=== PATIENT | female | born 1945 | race Caucasian/White ===

== ENCOUNTER → 2017-06-20 | Outpatient (CLI) | payer OTHER ==
[~2017-06-20] MED LIST: ACET-1138 PO; ASPEC81 PO; CALCTAB5 PO; CHOL1000 PO; CLB200 PO; CLC100 PO; GLUCTAB18 PO; LEVO25TA5 PO; MULT-190 PO; MULT-506 PO; OMEG10007 PO; POLY99.02 OP; PRT40 PO; RXC5 PO; SNK PO
[2017-06-20 14:03] LABS: THYROID STIMULATING HORMONE 3.4 uIu/ml (0.300-4.500)
== END | disposition home or self-care (01) ==
LOC: C.LABMFLN 09:10
PROVIDERS: ATTEND Family Medicine
DX: E03.9 Hypothyroidism, unspecified (principal)

== ENCOUNTER → 2017-10-27 | Outpatient (CLI) | payer OTHER ==
[2017-10-27 13:18] LABS: HEMOGLOBIN A1C 6.1 % (4.5-5.6)
[2017-10-27 14:06] LABS: BLOOD UREA NITROGEN 17 mg/dl (7-18); CARBON DIOXIDE 33 mmol/L (21-32); CREATININE 0.73 mg/dl (0.60-1.20); GLUCOSE 101 mg/dl (70-99); POTASSIUM 3.7 mmol/L (3.5-5.1); SODIUM 137 mmol/L (136-145)
== END | disposition home or self-care (01) ==
LOC: C.LABMFLN 09:04
PROVIDERS: ATTEND Family Medicine
DX: R73.01 Impaired fasting glucose (principal)

== ENCOUNTER 2022-01-27 08:03 | Inpatient (IN) ==
--- NOTE | 2021-12-31 09:02 | PAT Medication Instructions ---
Medication Instructions Date of Service December 31, 2021 Home Medications Medication Instructions Recorded calcium carb 300 mg-D3 800 1 tab PO BID #180 tab 03/20/19 unit-mag ox 25 mg-service technician copier 0.5 mg-yareli-Zn tablet (Caltrate + D3 Plus Minerals) vcfpqzqf-bbv-jvlrm acid 0.4 1 tab PO DAILY #90 tab 03/20/19 mg-lycopene 300 mcg-lutein 250 mcg tablet (Centrum Silver) vitamins A,C,Q-yvgr-xkvbyv 14,320 1 cap PO BID #180 cap 03/20/19 unit-226 mg-200 unit capsule (PreserVision AREDS) calcium carb 300 mg-D3 800 unit-mag ox 25 mg-service technician copier 0.5 mg-yareli-Zn tablet (Caltrate + D3 Plus Minerals) 1 tab PO BID Centrum Silver 1 tab PO DAILY PreserVision AREDS 1 cap PO BID acetaminophen 650 mg tablet,extended release (Tylenol Arthritis Pain) 1,300 mg PO UD PRN alendronate 70 mg tablet 70 mg PO WK cholecalciferol (vitamin D3) 50 mcg (2,000 unit) capsule 2,000 units PO QAM levothyroxine 50 mcg capsule 50 mcg PO QAM omega-3 fatty acids 1,000 mg capsule 1,000 mg PO QAM peg 400-propylene glycol (PF) 0.4 %-0.3 % eye drops in a dropperette (Systane (PF)) 1 drp OPHTHALMIC (EYE) UD PRN Continue as directed alendronate 70 mg tablet 70 mg PO WK STOP taking 2 weeks before surgery (or as soon as possible if surgery is within 2 weeks) PreserVision AREDS 1 cap PO BID omega-3 fatty acids 1,000 mg capsule 1,000 mg PO QAM DO NOT take the morning of surgery calcium carb 300 mg-D3 800 unit-mag ox 25 mg-service technician copier 0.5 mg-yareli-Zn tablet (Caltrate + D3 Plus Minerals) 1 tab PO BID Centrum Silver 1 tab PO DAILY cholecalciferol (vitamin D3) 50 mcg (2,000 unit) capsule 2,000 units PO QAM Take morning of surgery With a small sip of water, OTHERWISE NOTHING TO EAT OR DRINK AFTER MIDNIGHT: acetaminophen 650 mg tablet,extended release (Tylenol Arthritis Pain) 1,300 mg PO UD PRN (okay to take up to 4 hours prior to surgery if needed) levothyroxine 50 mcg capsule 50 mcg PO QAM peg 400-propylene glycol (PF) 0.4 %-0.3 % eye drops in a dropperette (Systane (PF)) 1 drp OPHTHALMIC (EYE) UD PRN (if needed) Take evening before surgery calcium carb 300 mg-D3 800 unit-mag ox 25 mg-service technician copier 0.5 mg-yareli-Zn tablet (Caltrate + D3 Plus Minerals) 1 tab PO BID acetaminophen 650 mg tablet,extended release (Tylenol Arthritis Pain) 1,300 mg PO UD PRN (if needed) peg 400-propylene glycol (PF) 0.4 %-0.3 % eye drops in a dropperette (Systane (PF)) 1 drp OPHTHALMIC (EYE) UD PRN (if needed) Other Notes If you have any questions please call us at [phone] or [phone] or [phone] or [phone]
--- NOTE | 2022-01-04 13:32 | Anesthesiology Consultation ---
Date of Service January 04, 2022 Assessment & Plan (1) Encounter for pre-operative examination: - COVID screening: Per assessment on 01/04: No known COVID-19 positive contacts or current COVID-19 related symptoms. Travel screen negative. Patient vaccluz marina merritt. Surgeon arranging preop COVID testing. Awaiting results. - Patient acceptable risk for surgery pending surgeon-ordered PCP preop evaluation (scheduled 01/12; [facility]). Chart Review Chart Review: Patient seen in Pre Admission Testing Teaching & Discussion Pre-Anesthesia Teaching/Discussion Notes: Instructed NPO after midnight before surgery,except medications with 15 cc of water. Medication instructions provided according to the PAT guidelines. History Surgery Operation Date: 01/27/22 13:35 Proposed Procedures p Right Total Knee Arthroplasty - Glen Toro MD Height/Weight Height: 5 ft 4.5 in Weight: 65.3 kg Allergies Allergy/AdvReac Type Severity Reaction Status Date / Time No Known Allergies Allergy Verified 12/30/21 15:33 Medications Home Medications Medication Instructions Recorded Confirmed Last Taken calcium carb 300 mg-D3 800 1 tab PO BID #180 tab 03/20/19 12/30/21 Unknown unit-mag ox 25 mg-copy director 0.5 mg-yareli-Zn tablet (Caltrate + D3 Plus Minerals) fwkqzati-iwy-vtxtc acid 0.4 1 tab PO DAILY #90 tab 03/20/19 12/30/21 Unknown mg-lycopene 300 mcg-lutein 250 mcg tablet (Centrum Silver) vitamins A,C,F-txth-uamnlu 14,320 1 cap PO BID #180 cap 03/20/19 12/30/21 Unknown unit-226 mg-200 unit capsule (PreserVision AREDS) acetaminophen 650 mg 1,300 mg PO UD PRN tab 03/30/21 12/30/21 Unknown tablet,extended release (Tylenol Arthritis Pain) alendronate 70 mg tablet 70 mg PO WK 12/30/21 12/30/21 Unknown cholecalciferol (vitamin D3) 50 2,000 units PO QAM 12/30/21 12/30/21 Unknown mcg (2,000 unit) capsule levothyroxine 50 mcg capsule 50 mcg PO QAM 12/30/21 12/30/21 Unknown omega-3 fatty acids 1,000 mg 1,000 mg PO QAM 12/30/21 12/30/21 Unknown capsule peg 400-propylene glycol (PF) 0.4 1 drp OPHTHALMIC (EYE) UD PRN 12/30/21 12/30/21 Unknown %-0.3 % eye drops in a dropperette (Systane (PF)) Past Medical History Medical History Hypothyroidism Macular degeneration Osteoporosis TMJ (temporomandibular joint disorder) No recent issues Exercise / Class Metabolic Activity III < 4 Walking/Shop/Light housework (uses cane PRN) Past Family History Family History Father Diabetes Coronary heart disease Mother Heart disease Denies family history of Ovarian cancer Prostate cancer Myocardial infarction Breast cancer Colorectal cancer Past Surgical History Surgical History H/O breast biopsy History of colonoscopy History of right hip replacement Past Anesthesia History No Hx of Anesthesia Complications and No Family Hx of Anesthesia Complications History of PONV No Hx of PONV and No Hx of Motion Sickness Social History Smoking Status: Never smoker Do You Dip or Chew Tobacco: No Hx Alcohol Use: No Hx Substance Use: No substance use type: does not use Review of Systems Patient denies chest pain, shortness of breath, dyspnea on exertion, fever, chills, cough, wheezing, palpitations. Physical Exam Vital Signs VITALS BP 124/75 P 69 TEMP 99.5 SP02 99%RA RESP 18 PHYSICAL Mildly decreased cervical extension range of motion. Full TMJ range of motion. TMD 3 finger breaths Mallampati Score 3 Dentition: intact, + crowns Lungs: clear throughout to auscultation Cardiac: regular rate and rhythm (occasional extra beat), no murmurs noted Spine: + scoliosis Carotid arteries: negative bruit Extremities: no edema Lab Results Anesthesia Preop Results Results Anesthesia Widget: WBC 4.24 K/uL (4.8-10.8) L 01/04/22 Hgb 12.0 g/dL (12.0-16.0) 01/04/22 Hct 37.1 % (37-47) 01/04/22 Plt 229 K/uL (130-400) 01/04/22 Na 139 mmol/L (136-145) 12/30/21 K 3.9 mmol/L (3.5-5.1) 12/30/21 Cl 100 mmol/L (98-107) 12/30/21 CO2 33 mmol/L (21-32) H 12/30/21 BUN 18 mg/dl (6-23) 12/30/21 Creat 0.71 mg/dl (0.6-1.2) 12/30/21 Glucose Level 105 mg/dl (70-99(Fasting)) H 12/30/21 PT 10.9 Seconds (9.0-12.0) 01/04/22 PTT 24.9 Seconds (21.0-31.0) 01/04/22 INR 1.0 (0.9-1.1) 01/04/22 TSH 3.267 uIu/ml (0.300-4.500) 12/30/21 Urine Color Yellow 01/04/22 Urine Appearance Clear (Clear) 01/04/22 Urine pH 8.5 (4.5-7.5) H 01/04/22 Urine Specific Purlear 1.014 (1.000-1.030) 01/04/22 Urine Protein Negative (Negative) 01/04/22 Urine Glucose (UA) Negative (Negative) 01/04/22 Urine Ketones Negative (Negative) 01/04/22 Urine Blood Negative (Negative) 01/04/22 Urine Nitrite Negative (Negative) 01/04/22 Urine Bilirubin Negative (Negative) 01/04/22 Urine Urobilinogen Negative (Negative) 01/04/22 Urine Leukocyte Esterase Negative (Negative) 01/04/22 Blood Type A Negative 01/04/22 Antibody Screen NEGATIVE 01/04/22 Testing Electrocardiogram Date: 01/04/22 SB at 57bpm. No significant change compared to 04/20/16 per head start teacher review. Chest X-Ray Date: 01/04/22 FINDINGS: Incidental note is made of S-shaped scoliosis of the thoracolumbar spine. No pneumothorax or pleural effusion is present. There is no consolidation or evidence for pulmonary edema. Cardiac size is within normal limits. IMPRESSION: No acute cardiopulmonary findings.
--- NOTE | 2022-01-24 08:53 | History & Physical Report ---
Date of Service January 24, 2022 Assessment & Plan (1) Primary osteoarthritis of right knee: Plan: Treatment options discussed with the patient. She has failed conservative measures and would like to proceed with knee replacement. Risks, benefits and alternatives to surgery including but not limited to infection, DVT, pain, stiffness, need for revision surgery, damage to blood vessels, damage to nerves, PE, , were discussed with the patient and they wish to proceed. Plan on right total knee arthroplasty on January 27 at [facility] with Dr. Toro. We will plan on aspirin 81 mg twice a day for 1 month postop for DVT prophylaxis. We will plan on inpatient rehab/residential facility postop. All questions answered. Patient will follow up postoperatively. History of Present Illness Chief Complaint: Right knee pain Primary Care Provider: Rick Arce MD 76-year-old female with past medical history significant for hypothyroidism and osteoporosis presents with longstanding right knee pain. Pain is interfering with her daily activities. She has failed conservative measures including injections and anti-inflammatories. She would like to proceed with surgical intervention. Patient denies headaches, sweats, fevers, chills, double vision, blurred vision, cough, sore throat, dysphagia, chest pain, sob, wheezing, n/v/d/c, numbness, tingling, fatigue, urinary symptoms, mood disorders. ROS positive for right knee pain and stiffness. Allergies Allergy/AdvReac Type Severity Reaction Status Date / Time No Known Allergies Allergy Verified 01/12/22 12:40 Home Medications Medication Instructions Recorded Confirmed Type calcium carb 300 mg-D3 800 1 tab PO BID #180 tab 03/20/19 01/12/22 Rx unit-mag ox 25 mg-coppersmith apprentice 0.5 mg-yareli-Zn tablet (Caltrate + D3 Plus Minerals) njzrjpdg-axx-wiczq acid 0.4 1 tab PO DAILY #90 tab 03/20/19 01/12/22 Rx mg-lycopene 300 mcg-lutein 250 mcg tablet (Centrum Silver) vitamins A,C,E-mkgx-zxtylz 14,320 1 cap PO BID #180 cap 03/20/19 01/12/22 Rx unit-226 mg-200 unit capsule (PreserVision AREDS) acetaminophen 650 mg 1,300 mg PO UD PRN tab 03/30/21 01/12/22 History tablet,extended release (Tylenol Arthritis Pain) alendronate 70 mg tablet 70 mg PO WK 12/30/21 01/12/22 History cholecalciferol (vitamin D3) 50 2,000 units PO QAM 12/30/21 01/12/22 History mcg (2,000 unit) capsule levothyroxine 50 mcg capsule 50 mcg PO QAM 12/30/21 01/12/22 History omega-3 fatty acids 1,000 mg 1,000 mg PO QAM 12/30/21 01/12/22 History capsule peg 400-propylene glycol (PF) 0.4 1 drp OPHTHALMIC (EYE) UD PRN 12/30/21 01/12/22 History %-0.3 % eye drops in a dropperette (Systane (PF)) Past Med/Surg History Medical History Hypothyroidism Macular degeneration Osteoporosis TMJ (temporomandibular joint disorder) Surgical History H/O breast biopsy History of colonoscopy History of right hip replacement Family History Father Diabetes Coronary heart disease Mother Heart disease Denies family history of Ovarian cancer Prostate cancer Myocardial infarction Breast cancer Colorectal cancer Social History Smoking Status: Never smoker Second Hand Exposure: No; Hx Alcohol Use: No Hx Substance Use: No Preferred Language: French Communication Ability: Effective Visual Impairment: Partially Limited Hearing Ability: Normal Vice President Of Brand Management Required: No Beliefs That Will Affect Care: None marital status: / Current Living Situation: Alone current occupational status: retired 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 How many Children do You have: 0 Feels Safe at Home: Yes Childhood Exposure to Second-Hand Smoke: No Seatbelt Use: always Sunscreen Use: Yes Assistive Devices: Cane and Walker Review of Systems All systems reviewed & are unremarkable except as noted in HPI & below Physical Exam Constitutional: well developed and well nourished; no acute distress Eyes: PERRL, conjunctivae normal, anicteric sclerae ENMT: external ear and nose normal, oropharynx normal Neck: trachea midline, no thyromegaly Respiratory: normal respiratory effort, lungs clear to auscultation Cardiovascular: RRR, no murmur, no edema Musculoskeletal: Right knee: Varus alignment. Moderate effusion. She has crepitation with range of motion. Tenderness medial joint line. Stable to valgus and varus stress test. Range of motion is 10 to 115 degrees actively. Skin: no rashes, warm and dry Neurologic: patellar DTR's 2+ bilat, sensation intact Psychiatric: A+Ox3, euthymic affect Results & Data ([facility]) Diagnostic Findings Right knee: [id number] medial compartment. There is tricompartmental osteoarthritis with osteophyte formation all 3 compartments. There is subchondral sclerosis.
[~2022-01-27 08:03] MED LIST changes: -ACET-1138 PO; +ACETAMINOPHEN 500 MG TAB PO SCH; -ASPEC81 PO; -CALCTAB5 PO; -CHOL1000 PO; -CLB200 PO; -CLC100 PO; +CeleBREX 200 MG CAP PO SCH; +FAMOTIDINE 20 MG TAB PO SCH; +GABAPENTIN 300 MG CAP PO SCH; -GLUCTAB18 PO; -LEVO25TA5 PO; +LR 500ML BOLUS, THEN 15ML/HR IV SCH; +METOCLOPRAMIDE HCL 10 MG TABLET PO SCH; +MIDAZOLAM HCL 1 MG/ML 2ML VIAL ONE; -MULT-190 PO; -MULT-506 PO; -OMEG10007 PO; -POLY99.02 OP; -PRT40 PO; +ROPIVACAINE 0.5% 5 MG/ML 30 ML VIAL ONE; +ROPIVACAINE 0.5% HCL/PF 150 MG, BUPIVACAINE 0.75% MPF 20 ML, EPINEPHrine 30MG/30ML (OR ... INSTIL SCH; -RXC5 PO; -SNK PO; +TRANEXAMIC ACID 1,000 MG **IV Intra-op IV SCH; +TRANEXAMIC ACID 1,000 MG **IV Pre-op IV SCH; +ceFAZolin 1000MG 1,000 MG/7.5 ML SYR IV SCH; +dexAMETHasone 4 MG TAB PO SCH
[2022-01-27] MEDS ORDERED: BUPIVACAINE 0.5 % 5 MG/1 ML PF 10ML VIAL ONE (08:11)
--- NOTE | 2022-01-27 09:13 | History & Physical Bridge Note ---
Date of Service January 27, 2022 History & Physical Bridge Note I have examined the patient, reviewed the History & Physical and in the interval since the performance of the History & Physical I have noted the following changes of clinical significance: no changes noted
[2022-01-27] MEDS ORDERED: ONDANSETRON INJ 2 MG/ML 2 ML VIAL IV PRN ×2 (09:49→14:10)
[2022-01-27] MEDS ORDERED: ePHEDrine sulfate 50 MG/ML AMP IV PRN (09:49)
[2022-01-27] MEDS ORDERED: HYDROmorphone INJ 2 MG/ML SYR/VIAL IV PRN (09:49)
[2022-01-27] MEDS ORDERED: fentaNYL citrate 100 MCG/2 ML VIAL IV PRN (09:49)
[2022-01-27] MEDS ORDERED: ATROPINE SULFATE 0.1 MG/ML 10ML SYR IV PRN (09:49)
[2022-01-27] MEDS ORDERED: PROMETHAZINE HCL 12.5 MG in SODIUM CHLORIDE 0.9% 50 ML IV PRN (09:49)
[2022-01-27] MEDS ORDERED: ORTHO JOINT ANESTHETIC ONE (09:52)
[2022-01-27] MEDS ORDERED: PROPOFOL IV EMULSION 10 MG/ML 20 ML VIAL IV ONE (10:33)
[2022-01-27] MEDS ORDERED: ePHEDrine sulfate 50 MG/ML AMP ONE (10:41)
--- NOTE | 2022-01-27 12:13 | Operative Report ---
Post Operative Report Pre & Post Diagnosis Operation Date: 01/27/22 10:20 Pre-Op Diagnosis: Right Knee Osteoarthritis Post-Op Diagnosis: Right Knee Osteoarthritis I identified the patient and participated in the time-out.: Yes Procedure Operation Date: 01/27/22 10:20 Actual Procedures p Right Total Knee Arthroplasty(Right) - Glen Toro MD Surgeon Glen Toro MD Clean In Places Operator Edvin LOPES Estimated Blood Loss 5 Findings Consistent with Post-Op Diagnosis Specimens Bone cuts Drains 2 Hemovac Anesthesia Type MAC Spinal Regional Complications none Disposition Disposition: Recovery Room Indications 76-year-old female progressive osteoarthritis in her right knee. She has tricompartmental osteoarthritis lsof-xy-[id number] medial compartment. Varus knee. Description of Procedure Patient was taken to the operating room placed supine on the operating table and anesthetized under spinal MAC regional block anesthesia. Exam under anesthesia demonstrated 0 through 120 degrees range of motion [id number] crepitation mild pseudolaxity with valgus stress. A pneumatic tourniquet was placed about the thigh of the right lower extremity. The right lower extremity was prepped and draped in usual sterile fashion. The leg was elevated exsanguinated with an Esmarch bandage and the pneumatic tourniquet was raised to 325 mm mercury. An anterior incision was made across the right knee. The skin was incised longitudinally subcutaneous flaps were elevated and an incision was made through the medial retinaculum extending up into the mid third of the quadriceps tendon and extended down to the medial tibial tubercle. Intra-articular findings demonstrated tricompartmental osteoarthritis eburnated bone medial and lateral compartments with notch stenosis chronic ACL tear. The knee was exposed by excising the infrapatellar fat pad, excising the meniscal remnants and anterior cruciate ligament. Any inflamed synovial tissue was resected. The fat pad over the anterior femur was resected for placement of the component in that area. The lateral synovial bands were release. The femur was exposed. The custom femoral cutting block was pinned in position. The distal femoral cutting block was applied. The distal femoral cut was made with the oscillating saw. The size 8, 4-in-1 cutting block was placed. The anterior and posterior chamfer cuts were made. The knee was extended and a subperiosteal peel lateral release was performed around the patella. The patella width was measured and width was reproduced using freehand cut technique. The 32 x 8.5 millimeter symmetrical patella was used. 3 drill holes are made for the pegs. The tibia was exposed. A custom tibial cutting block was positioned and drill holes were made for the cutting guide. Cutting guide was placed and the proximal cut was made with the oscillating saw. All osteophytes were resected. The lamina professional model was used to assess ligamentous balance and the ligaments were balanced in extension and flexion. The tibia was reexposed and measured for a size E tibial component. This was externally rotated in line with the tibial tubercle and the fixation pins were drilled. The proximal tibia was fashioned with the drill and punch. The size 8 CR femoral trial was inserted. The trial MC inserts were used. The 12 mm insert gave balanced ligaments through full range of motion. The patella tracked slight lateral tilt and liftoff so I performed a partial lateral release leaving the synovium intact and this corrected the patella to complete central tracking with no tilt. The trials were removed. The orthomix anesthetic cocktail was injected per protocol. The knee was then copiously irrigated with pulsatile lavage saline solution. The final components were cemented with Refobacin bone cement. The final components were Nasir persona 8 standard CR right femoral component, E right tibial component, 12 MC tibial polyethylene, 32 x 8.5 symmetrical patella. after the cement cured with the knee in full extension the Betadine soak was used per protocol. The knee joint was copiously irrigated with pulsatile lavage saline solution . 2 drains were brought out laterally and connected to a Hemovac. The quadriceps tendon and medial retinaculum were closed with interrupted [id number] #1 Vicryl sutures. The knee was taken through a full range of motion and repair was secure. The subcutaneous tissues were closed with 2-0 Vicryl sutures and skin was closed with khalida. Sterile dressings were applied and the patient tolerated the procedure well.Edvin LOPES my physician desk assistant,acted sa first assisstant and assisted in all aspects of the procedure. he assisted in soft tissue retraction, instrument management ,leg positioning, the closure and will participate in the postoperative care of the patient. I attest to the content of the Intraoperative Record and any orders documented therein. Any exceptions are noted below.
--- NOTE | 2022-01-27 13:48 | XRay Report ---
XR knee RT 1 or 2V routine HISTORY: 76 years-old Female Surgical Post Op right knee total joint arthroplasty COMPARISON: None TECHNIQUE: 2 views of the right knee FINDINGS: Right knee total joint arthroplasty with patellar resurfacing. Anterior midline skin khalida are note d along with expected postoperative soft tissue swelling and deep tissue air. Surgical drainage peggy ter is in place. No acute fracture or unexpected opaque foreign body. IMPRESSION: Right knee total joint arthroplasty and patella resurfacing with expected postoperative c hanges. ACT 112: Negative or not required by law. The above report was generated using voice recognition software. It may contain grammatical, syntax o r spelling errors. Electronically signed by: Jordan Reynolds M.D. 01/27/2022 1:47 PM
--- NOTE | 2022-01-27 13:50 | Anesthesiology Progress Note ---
Date of Service January 27, 2022 Anesthesia Post Procedure Vital Signs Vital Signs: Temp Pulse Pulse Resp BP BP Pulse Ox 01/27/22 13:45 54 L 14 103/78 97 01/27/22 13:30 36.4 C L 56 L 14 109/70 97 01/27/22 13:20 56 L 15 116/60 100 01/27/22 13:10 55 L 15 109/63 100 01/27/22 13:00 61 13 113/73 100 01/27/22 12:54 36.1 C L 66 18 113/62 100 01/27/22 08:51 36.8 C 62 18 156/74 H 100 Transfer of Care Handoff Completed per policy Notes Mental Status: alert / awake / arousable and participated in evaluation Patient Amnestic to Procedure: Yes Nausea / Vomiting: adequately controlled Pain: adequately controlled Airway Patency, RR, SpO2: stable & adequate BP & HR: stable & adequate Hydration State: stable & adequate Anesthetic Complications: no major complications apparent
[2022-01-27] MEDS ORDERED: METOCLOPRAMIDE HCL INJ 5 MG/ML 2 ML VIAL IV PRN (14:10)
[2022-01-27] MEDS ORDERED: MAGNESIUM HYDROXIDE SUSP 30 ML UDC PO PRN (14:10)
[2022-01-27] MEDS ORDERED: NALOXONE HCL 0.4 MG/1 ML VIAL/CARP IV PRN (14:10)
[2022-01-27] MEDS ORDERED: bisacodyL 10 MG SUPP PR PRN (14:10)
[2022-01-27] MEDS ORDERED: HYDROmorphone INJ 0.5 MG/0.5 ML SYR IV PRN (14:10)
[2022-01-27] MEDS ORDERED: ARTIFICIAL TEARS OP PRN (14:25)
[2022-01-27] MEDS: SODIUM CHLORIDE 0.9% 1000ML 1,000 ML IV SCH (15:25)
--- NOTE | 2022-01-27 15:42 | Hospitalist Consultation ---
Date of Consultation January 27, 2022 Assessment & Plan (1) Primary osteoarthritis of right knee: Lila is a 76-year-old female with a past medical history of knee osteoarthritis,Prediabetes, hypothyroidism, and osteoporosis who presented for right knee arthroplasty. Patient is status post right total knee arthroplasty, medicine has been consulted for postoperative management. Operative intervention 01/27/2022 was uncomplicated by report with 5 cc of estimated blood loss. Normotensive with regular heart rate postop, no fever. Encouraged to use incentive spirometry. Right knee arthroplasty DVT prophylaxis, pain control, diet, ambulation restrictions per primary team Patient status post total knee arthroplasty 01/23/2022 with minimal blood loss and no complications Preop hemoglobin normal, no signs of bleeding Hypothyroidism Continue home Synthroid 50 mcg p.o. every morning Last TSH 3.267, within normal limits Prediabetes Last A1c 6.2%, does not require home antilipemics BMP daily Preoperative testing Preoperative EKG sinus bradycardia without acute ST changes and no change compared to prior 2015. CXR without acute findings. RCRI class I risk. Preoperative hemoglobin normal, 12.0. No history of kidney dysfunction, last creatinine less than 1. 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 Patient is status post right total knee arthroplasty, medicine has been consulted for postoperative management. Operative intervention 01/27/2022 was uncomplicated by report with 5 cc of estimated blood loss. Feels her knee is doing well. "Doing OK." no pain at tiem of assessment. 'Still numb.' Pre-DM, no PHYSICAL EDUCATION DEPARTMENT CHAIR antiglycemics. Takes synthroid 50mcg, last changed just prior to August. Recent TSh normal. No chills/night sweats/increased fatigue/weight change. No hx heart attacks of heart problems No hx of blood pressure problems Has noticed some urinary incontinence post-op, thinks she had a Rangel in but is not sure. no pain with urination, no burning. No fever/chills/sweats/nausea/vomiting/diarrhea/constipation. Denies shortness of breath, difficulty breathing, wheezing, cough, sputum production. COVID vaccinated + boosted Medical History: Reviewed Medications: Reviewed Surgical History: Reviewed Allergies: Reviewed Social History: No tobacco product use. No alcohol use. No recreational drug use. Lives in the [facility] [place] and likes to walk. Code Status: Surrogate DM would be Makayla Osullivan. Full Code. Allergies Allergy/AdvReac Type Severity Reaction Status Date / Time No Known Allergies Allergy Verified 01/27/22 08:47 Home Medications Medication Instructions Recorded Confirmed Type calcium carb 300 mg-D3 800 1 tab PO BID #180 tab 03/20/19 01/27/22 Rx unit-mag ox 25 mg-newspaper copy editor 0.5 mg-yareli-Zn tablet (Caltrate + D3 Plus Minerals) ccvgyrck-kdy-rdaiu acid 0.4 1 tab PO DAILY #90 tab 03/20/19 01/27/22 Rx mg-lycopene 300 mcg-lutein 250 mcg tablet (Centrum Silver) vitamins A,C,D-cnmc-jvezno 14,320 1 cap PO BID #180 cap 03/20/19 01/27/22 Rx unit-226 mg-200 unit capsule (PreserVision AREDS) acetaminophen 650 mg 1,300 mg PO UD PRN tab 03/30/21 01/27/22 History tablet,extended release (Tylenol Arthritis Pain) alendronate 70 mg tablet (Fosamax) 70 mg PO WK 12/30/21 01/27/22 History cholecalciferol (vitamin D3) 50 2,000 units PO QAM 12/30/21 01/27/22 History mcg (2,000 unit) capsule levothyroxine 50 mcg capsule 50 mcg PO QAM 12/30/21 01/27/22 History omega-3 fatty acids 1,000 mg 1,000 mg PO QAM 12/30/21 01/27/22 History capsule peg 400-propylene glycol (PF) 0.4 1 drp OPHTHALMIC (EYE) UD PRN 12/30/21 01/27/22 History %-0.3 % eye drops in a dropperette (Systane (PF)) Patient History Medical History Hypothyroidism Macular degeneration Osteoporosis TMJ (temporomandibular joint disorder) No recent issues Surgical History H/O breast biopsy History of colonoscopy History of right hip replacement Family History Father Diabetes Coronary heart disease Mother Heart disease Denies family history of Ovarian cancer Prostate cancer Myocardial infarction Breast cancer Colorectal cancer Social History Smoking Status: Never smoker Second Hand Exposure: No; Do You Dip or Chew Tobacco: No; Hx Alcohol Use: No Hx Substance Use: No Preferred Language: Italian Communication Ability: Effective Visual Impairment: Partially Limited Hearing Ability: Normal Adult Secondary Education Instructor Required: No Beliefs That Will Affect Care: None marital status: / Current Living Situation: Alone current occupational status: retired 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 NAD. Cooperative. HEENT: Atraumatic, normocephalic. Vision/hearing intact grossly. PERLAA. EoM intact without nystagmus. Pulm: CTAB A&P. -wheezes, -rales, -rhonchi. Symmetrical chest rise. No increased work of breathing. No respiratory distress. Cardiac: RRR, -mrg. Radial pulses intact and symmetrical. Abdominal: Nontender, nondistended, soft. BS present. Ext: R knee in post-op dressing, drain in place draining sanginous material. L knee atraumatic. Cap refill in hallux bilaterally brisk. Sensation to soft touch intact in hands and feet bilaterally without asymmetry. Metaphysics Teacher strength, ankle dorsiflexion/plantarflexion intact bilaterally 5/5. Results & Data Results & Data ([facility]) Vital Signs (Past 12 Hours) Vital Signs Temp Pulse Pulse Resp BP BP Pulse Ox 01/27/22 15:00 36.4 C L 62 16 105/63 100 01/27/22 14:35 54 L 16 117/68 98 01/27/22 14:00 36.5 C 58 L 16 113/69 97 01/27/22 13:45 54 L 14 103/78 97 01/27/22 13:30 36.4 C L 56 L 14 109/70 97 01/27/22 13:20 56 L 15 116/60 100 01/27/22 13:10 55 L 15 109/63 100 01/27/22 13:00 61 13 113/73 100 01/27/22 12:54 36.1 C L 66 18 113/62 100 01/27/22 08:51 36.8 C 62 18 156/74 H 100 PG Care Time/CCT Total # of Minutes Spent Total Time Spent with Patient: Total time spent is greater than 50% in coordination of care (as documented) at patient's floor/unit and/or counseling patient: Coding Level of Care Code 27824 Inpt Consult Level 3 Diagnoses Primary osteoarthritis of right knee M17.11 Impaired fasting glucose R73.01 Osteoarthritis of knee M17.10 Impaired fasting blood sugar R73.01
[2022-01-27] MEDS: ACETAMINOPHEN 500 MG TAB PO SCH ×2 (16:07→23:13)
[2022-01-27] MEDS: SENNA 8.6 MG TAB PO SCH (20:41)
[2022-01-27] MEDS: DOCUSATE SODIUM 100 MG CAP PO SCH (20:41)
[2022-01-27] MEDS: ceFAZolin 1000MG 1,000 MG/7.5 ML SYR IV SCH (20:41)
[2022-01-27] MEDS: CALCIUM 600MG + VIT D 400 IU TAB PO SCH (20:41)
[2022-01-27] MEDS: CeleBREX 200 MG CAP PO SCH (20:41)
[2022-01-27] MEDS: ASPIRIN 81 MG ECTAB PO SCH (20:41)
[2022-01-28] MEDS: SODIUM CHLORIDE 0.9% 1000ML 1,000 ML IV SCH (01:09)
[2022-01-28] MEDS: ceFAZolin 1000MG 1,000 MG/7.5 ML SYR IV SCH (03:23)
[2022-01-28] MEDS: LEVOTHYROXINE SODIUM 50 MCG TABLET PO SCH (05:57)
[2022-01-28 06:19] LABS: Hematocrit (blood only) 31.5 % (37-47); Hemoglobin 10.2 g/dL (12.0-16.0); Mean Corpuscular Hgb Conc 32.4 g/dL (32-36); Mean Corpuscular Volume 95.7 fL (80-100); Mean Platelet Volume 10.6 fL (7.4-10.4); Platelet Count 211 K/uL (130-400); RDW Coefficient of Variation 14.3 % (11.5-14.5); Red Blood Count 3.29 M/uL (4.2-5.4); White Blood Count 8.32 K/uL (4.8-10.8)
[2022-01-28 06:46] LABS: BUN Creatinine Ratio 29.7 (10-20); Calcium 8.5 mg/dl (8.5-10.1); Creatinine Clr Calc Pharmacy 64.9 ml/min; Est GFR (African American) 99.8 ml/min; Est GFR (Non-African American) 86.1 ml/min; Potassium 3.9 mmol/L (3.5-5.1)
[2022-01-28] MEDS: CeleBREX 200 MG CAP PO SCH ×2 (08:49→21:23)
[2022-01-28] MEDS: CEROVITE ADV FORMULA TAB PO SCH (08:49)
[2022-01-28] MEDS: DOCUSATE SODIUM 100 MG CAP PO SCH ×2 (08:49→21:23)
[2022-01-28] MEDS: ASPIRIN 81 MG ECTAB PO SCH ×2 (08:49→21:24)
[2022-01-28] MEDS: ACETAMINOPHEN 500 MG TAB PO SCH ×2 (08:49→16:17)
[2022-01-28] MEDS: CHOLECALCIFEROL 1,000 UNITS 25 MCG TAB PO SCH (08:50)
[2022-01-28] MEDS ORDERED: MULTIVITAMIN TAB PO SCH (09:00)
--- NOTE | 2022-01-28 10:41 | Orthopedic Progress Note ---
Date of Service January 28, 2022 Assessment & Plan (1) Primary osteoarthritis of right knee: Plan: Postop day 1 right total knee arthroplasty -Pain management as written. -PT/OT -DVT prophylaxis: SCDs, teds, aspirin 81 mg twice a day -AM labs: Hemoglobin at 10.2 from 12 preop. -Discharge planning: Patient requesting inpatient rehab/SNF. She is [facility]. Case management consult placed. Admission and Anticipated Discharge Date Admission Date: January 27, 2022 Subjective Patient is postop day 1 right total knee. She is doing well this morning. Pain is well controlled. No other complaints. Denies chest pain, shortness of breath, dizziness, headache/fevers/chills. Review of Systems Review of Systems: All systems reviewed & are unremarkable except as noted in Subjective Physical Exam Physical Exam: Right knee: Dressing is clean, dry, intact. Hemovac and denver in place and functioning. Toes are mobile with good dorsiflexion. No calf tenderness. Distally neurovascular status and sensation intact. Results & Data ([facility]) Vital Signs (Past 12 Hours) Vital Signs Temp Pulse Resp BP Pulse Ox 01/28/22 07:20 36.7 C 55 L 16 121/70 99 01/28/22 02:53 36.6 C 56 L 16 127/67 96
[2022-01-28] MEDS: CALCIUM 600MG + VIT D 400 IU TAB PO SCH ×2 (12:03→21:23)
[2022-01-28] MEDS: oxyCODONE HCL IR 5 MG TAB (IMMEDIATE RELEASE) PO PRN ×2 (12:11→21:22)
--- NOTE | 2022-01-28 18:35 | Hospitalist Progress Note ---
Date of Service January 28, 2022 Assessment & Plan (1) Primary osteoarthritis of right knee: Plan: Lila is a 76-year-old female with a past medical history of knee osteoarthritis,Prediabetes, hypothyroidism, and osteoporosis who presented for right knee arthroplasty. Patient is status post right total knee arthroplasty, medicine has been consulted for postoperative management. Operative intervention 01/27/2022 was uncomplicated by report with 5 cc of estimated blood loss. Normotensive with regular heart rate postop, no fever. Encouraged to use incentive spirometry. That he is doing well postoperatively. Postoperative hemoglobin decreased to 10.2, no overt signs of bleeding or hematoma on exam. Pending placement to [place]. Recommend H&H recheck in the morning for stability. Creatinine remains at baseline. Recommend continuing vitamin D supplementation and calcium on discharge. Medicine to sign off and will follow peripherally, please reconsult with any acute questions or concerns. Right knee arthroplasty DVT prophylaxis, pain control, diet, ambulation restrictions per primary team Patient status post total knee arthroplasty 01/23/2022 with minimal blood loss and no complications Preop hemoglobin normal, no signs of bleeding Hypothyroidism Continue home Synthroid 50 mcg p.o. every morning Last TSH 3.267, within normal limits Prediabetes Last A1c 6.2%, does not require home antiglycemics BMP dailyadequate glycemic control during admission Preoperative testing Preoperative EKG sinus bradycardia without acute ST changes and no change compared to prior 2016. CXR without acute findings. RCRI class I risk. Preoperative hemoglobin normal, 12.0. No history of kidney dysfunction, last creatinine less than 1. 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 Sitting up in a chair no acute distress. Reports she is doing her range of motion exercises and gets a little stiff if she waits too long, but otherwise is tolerating these well. Pain is 5/10, improved to somewhat similar from yesterday. No worsened pain. No chest pain, chest press ure, shortness of breath, difficulty breathing, bleeding, lightheadedness, dizziness. She is anticipating potentially getting out of the hospital tomorrow. Review of Systems Review of Systems: All systems reviewed & are unremarkable except as noted in Subjective Physical Exam 2 Physical Exam: General: A&Ox3. NAD. Cooperative. HEENT: Atraumatic, normocephalic. Vision/hearing intact grossly. Pulm: CTAB A&P. -wheezes, -rales, -rhonchi. Symmetrical chest rise. No increased work of breathing. No respiratory distress. Cardiac: RRR, -mrg. Radial pulses intact and symmetrical. Abdominal: Nontender, nondistended, soft. BS present. Ext: R knee in post-op dressing, drain in place draining sanginous material, slightly viscosity worker in color than prior L knee atraumatic. Cap refill in hallux bilaterally brisk. Sensation to soft touch intact in hands and feet bilaterally without asymmetry. Results & Data Results & Data ([facility]) Vital Signs (Past 12 Hours) Vital Signs Temp Pulse Resp BP Pulse Ox 01/28/22 14:30 36.6 C 74 16 135/65 97 01/28/22 07:20 36.7 C 55 L 16 121/70 99 PG Care Time/CCT Total # of Minutes Spent Total Time Spent with Patient: Total time spent is greater than 50% in coordination of care (as documented) at patient's floor/unit and/or counseling patient: Coding Level of Care Code 52168 Subseq Hosp Care Lvl 1 Diagnoses Primary osteoarthritis of right knee M17.11 Impaired fasting glucose R73.01 Osteoarthritis of knee M17.10
[2022-01-28] MEDS: SENNA 8.6 MG TAB PO SCH (21:22)
[2022-01-29] MEDS: ACETAMINOPHEN 500 MG TAB PO SCH ×2 (00:17→08:15)
[2022-01-29] MEDS: oxyCODONE HCL IR 5 MG TAB (IMMEDIATE RELEASE) PO PRN (06:06)
[2022-01-29] MEDS: LEVOTHYROXINE SODIUM 50 MCG TABLET PO SCH (06:07)
--- NOTE | 2022-01-29 07:31 | Orthopedic Progress Note ---
Date of Service January 29, 2022 Assessment & Plan (1) Primary osteoarthritis of right knee: Plan: Postop day 2 right total knee arthroplasty -Pain management as written. -PT/OT -DVT prophylaxis: SCDs, teds, aspirin 81 mg twice a day. -Discharge planning: Patient requesting inpatient rehab/SNF. She is requesting referral [facility]. Case management consult placed. Patient stable for discharge once accepted by [facility]. Discontinue Hemovac and Yazan today. Admission and Anticipated Discharge Date Admission Date: January 27, 2022 Subjective Patient is postop day 2 right total knee. She is doing well this morning. Pain well controlled. No other complaints. Denies chest pain, shortness of breath, dizziness, fever/chills, nausea/vomiting/diarrhea. Review of Systems Review of Systems: All systems reviewed & are unremarkable except as noted in Subjective Physical Exam Physical Exam: Right knee: Dressing is clean, dry, intact. Hemovac and denver in place and functioning. Toes are mobile with good dorsiflexion. No calf tenderness. Distally neurovascular status and sensation intact. Constitutional: well developed and well nourished; no acute distress Results & Data ([facility]) Vital Signs (Past 12 Hours) Vital Signs Temp Pulse Resp BP Pulse Ox 01/29/22 07:13 36.8 C 64 16 152/72 H 99 01/28/22 22:22 36.6 C 60 16 115/68 96
[2022-01-29] MEDS: ASPIRIN 81 MG ECTAB PO SCH (08:15)
[2022-01-29] MEDS: CeleBREX 200 MG CAP PO SCH (08:15)
[2022-01-29] MEDS: CALCIUM 600MG + VIT D 400 IU TAB PO SCH (08:15)
[2022-01-29] MEDS: CEROVITE ADV FORMULA TAB PO SCH (08:15)
[2022-01-29] MEDS: DOCUSATE SODIUM 100 MG CAP PO SCH (08:15)
[2022-01-29] MEDS: CHOLECALCIFEROL 1,000 UNITS 25 MCG TAB PO SCH (08:15)
--- NOTE | 2022-01-29 10:25 | Communication Note ---
Date of Service: January 29, 2022 Pt Orthopedically stable for transfer to SNF. Case discussed with Dr. Toro. Pt does not need to stay the 3 midnight minimum days before being transferred to SNF. Plan for transfer today.
--- NOTE | 2022-02-01 16:34 | Discharge Summary ---
Date of Service February 01, 2022 Admission HPI Per Admitting Provider 76-year-old female with past medical history significant for hypothyroidism and osteoporosis presents with longstanding right knee pain. Pain is interfering with her daily activities. She has failed conservative measures including injections and anti-inflammatories. She would like to proceed with surgical intervention. Patient denies headaches, sweats, fevers, chills, double vision, blurred vision, cough, sore throat, dysphagia, chest pain, sob, wheezing, n/v/d/c, numbness, tingling, fatigue, urinary symptoms, mood disorders. ROS positive for right knee pain and stiffness. Admission Exam Per Admitting Provider Constitutional: well developed and well nourished; no acute distress Eyes: PERRL, conjunctivae normal, anicteric sclerae ENMT: external ear and nose normal, oropharynx normal Neck: trachea midline, no thyromegaly Respiratory: normal respiratory effort, lungs clear to auscultation Cardiovascular: RRR, no murmur, no edema Musculoskeletal: Right knee: Varus alignment. Moderate effusion. She has crepitation with range of motion. Tenderness medial joint line. Stable to valgus and varus stress test. Range of motion is 10 to 115 degrees actively. Skin: no rashes, warm and dry Neurologic: patellar DTR's 2+ bilat, sensation intact Psychiatric: A+Ox3, euthymic affect Principal Diagnosis right knee osteoarthritis Discharge Exam Right knee: Dressing is clean, dry, intact. Hemovac and [place] in place and functioning. Toes are mobile with good dorsiflexion. No calf tenderness. Distally neurovascular status and sensation intact. Constitutional well developed and well nourished; no acute distress Discharge Data Allergies Allergy/AdvReac Type Severity Reaction Status Date / Time No Known Allergies Allergy Verified 01/27/22 08:47 Consultations 01/25/22 13:09 Consult Hospitalist Routine Procedures Performed Operation Date: 01/27/22 10:20 Actual Procedures p Right Total Knee Arthroplasty(Right) - Glen Toro MD Ordered Studies 01/27/22 05:00 US - OR guided needle placemen Routine Hospital Course (1) Primary osteoarthritis of right knee: Patient presented for same day admission following right TKA on 01/27/22. She tolerated procedure well. The Patient had an uneventful hospital course. Post-operatively, her activity was progressed and well tolerated. They participated in PT with ambulation distance of 140 feet. ROM of operative knee reached 90 degrees. Labs remained stable. Medical service was consulted for medical management during admission. Pain controlled on oral medications. Please refer to daily progress notes and PT notes for complete details. After exam on 01/29/22, patient was felt to be stable for discharge to [facility]. Patient will f/u in the office in about 2 weeks for further evaluation including x-rays and incision check, sooner if having any issues or concerns. Postop day 2 right total knee arthroplasty -Pain management as written. -PT/OT -DVT prophylaxis: SCDs, teds, aspirin 81 mg twice a day. -Discharge planning: Patient requesting inpatient rehab/SNF. She is requesting referral to [facility] [place]. Case management consult placed. Patient stable for discharge once accepted by [facility]. Discontinue Hemovac and Yazan today. Lab Results 01/27/22 01/28/22 01/28/22 Range/Units 08:24 05:40 05:40 WBC 8.32 (4.8-10.8) K/uL RBC 3.29 L (4.2-5.4) M/uL Hgb 10.2 L (12.0-16.0) g/dL Hct 31.5 L (37-47) % MCV 95.7 (80-100) fL MCH 31.0 (25-34) pg MCHC 32.4 (32-36) g/dL RDW Std Deviation 50.0 H (36.4-46.3) fL RDW Coeff of Sara 14.3 (11.5-14.5) % Plt Count 211 (130-400) K/uL MPV 10.6 H (7.4-10.4) fL Sodium 139 (136-145) mmol/L Potassium 3.9 (3.5-5.1) mmol/L Chloride 108 H (98-107) mmol/L Carbon Dioxide 27 (21-32) mmol/L Anion Gap 4 (3-11) BUN 19 (6-23) mg/dl Creatinine 0.64 (0.6-1.2) mg/dl Est Cr Clr Drug Dosing 64.9 ml/min Est GFR ( Amer) 99.8 ml/min Est GFR (Non-Af Amer) 86.1 ml/min BUN/Creatinine Ratio 29.7 H (10-20) Glucose 107 H (70-99(Fasting)) mg/dl Calcium 8.5 (8.5-10.1) mg/dl SARS-CoV-2, RNA, NAAT NEGATIVE (NEGATIVE) 01/29/22 Range/Units 10:40 WBC (4.8-10.8) K/uL RBC (4.2-5.4) M/uL Hgb (12.0-16.0) g/dL Hct (37-47) % MCV (80-100) fL MCH (25-34) pg MCHC (32-36) g/dL RDW Std Deviation (36.4-46.3) fL RDW Coeff of Sara (11.5-14.5) % Plt Count (130-400) K/uL MPV (7.4-10.4) fL Sodium (136-145) mmol/L Potassium (3.5-5.1) mmol/L Chloride (98-107) mmol/L Carbon Dioxide (21-32) mmol/L Anion Gap (3-11) BUN (6-23) mg/dl Creatinine (0.6-1.2) mg/dl Est Cr Clr Drug Dosing ml/min Est GFR ( Amer) ml/min Est GFR (Non-Af Amer) ml/min BUN/Creatinine Ratio (10-20) Glucose (70-99(Fasting)) mg/dl Calcium (8.5-10.1) mg/dl SARS-CoV-2, RNA, NAAT NEGATIVE (NEGATIVE) Total Time Total Time Spent Total Time Spent (In Minutes): 20 Discharge Plan Discharge Items Patient Disposition: Transfer Halfway Fac Reason For Visit: Right Knee Osteoarthritis Discharge Diagnosis: Right knee osteoarthritis Activity: Per Instructions section Weightbearing: Right weightbearing Weightbearing Comment: as tolerated with walker Non-emergency contact: Surgeon Call non-emergency contact if: you have any medication questions, your pain is not controlled, your pain is concerning for you, you have a fever, your temperature is above 101, your wound has increased redness and your wound has increased drainage Follow-up/Referrals: Rick Arce MD [Primary Care Provider] - Diet: Regular Addtl Attending Provider Instructions: ACTIVITY RECOMMENDATIONS: SELF CARE INSTRUCTIONS AFTER TOTAL KNEE REPLACEMENT A. You may need to continue a physical therapy program after discharge from the hospital. There are several options available to you. Your doctor will assist you in selecting the best one for you. 1. An out-patient facility 2 to 3 times a week for therapy or home therapy. 2. Continue working on all exercises taught to you in the hospital. Your goals should be to increase bending of your knee to 90 degrees and beyond and to fully straighten your knee. B. You may progress at your own pace from walking with a walker or crutches to a cane; then to no assistive devices. C. Make walking a part of your daily routine. Be up as much as comfortable with rest periods throughout the day. Rest with leg elevation is very important. Use the ice wrap frequently for the first 3-4 weeks. D. There are no restrictions on activities. You may ride in a car, shop, participate in chips screen tender and all social activities. E. Wear the long elastic stockings ([place] hose) 20 hours a day for 2 weeks after surgery. They can be removed several times a day for laundering and for a bath. F. You may shower, no tub baths until cleared by your doctor. SPECIAL CARE INSTRUCTIONS: VERY IMPORTANT TO READ AND REVIEW A. There are a few signs you need to watch for after you are home. Call [facility] if you notice any of the followin. Increased severe knee pain. Some pain is expected especially when you exercise. 2. Increased swelling in your leg or knee; pain or swelling of the calf muscle in either lower leg. 3. Any fluid drainage from the incision. 4. Shortness of breath or chest pain. B. Please call [facility] at if you have any concerns or questions about your operation or recovery. The doctor or his nurse will return your call promptly. C. You must take antibiotics before dental work, bladder, bowel or other surgery. Your doctor will provide you with a permanent care to carry describing this precaution. IMPORTANT: * REMEMBER TO TAKE ASPIRIN, 81 MG, TWICE DAILY FOR 4 WEEKS UNLESS OTHERWISE DIRECTED. THIS IS YOUR BLOOD THINNER. * HIGH RISK PATIENTS MAY BE PRESCRIBED A STRONGER BLOOD THINNER. THIS WILL BE PROVIDED AT DISCHARGE. * CALL IF INCREASED PAIN, REDNESS, DRAINAGE OR FEVER GREATER THAT 101. * WEAR [place] HOSE 20 HOURS PER DAY FOR 2 WEEKS. This is a large suction dressing covering your incision. This will help pull any excess drainage from the wound and allow your incision to heal properly. You may shower with this if you can keep the unit outside of the shower. If any bleeding or leakage is noted please call your doctor's office. This will remain on your incision for 7 days and then should be removed. This can be done yourself or by the home nursing staff if applicable. The entire unit is disposable once removed. Once removed, keep incision clean and dry. If redness or drainage is noted, please call your surgeon. IF INCISION IS LEAKING THROUGH DRESSING, CALL THE OFFICE . FOLLOW UP VISIT: If appointment is not already scheduled: Please call [facility] to make a follow-up appointment for 2 weeks after your surgery at . Stand-Alone Forms: My New [facility] Skilled Items Patient informed of condition?: Yes DNR: No Discharge Level of Care: Skilled Communicable Disease: No Discharge Prognosis: Improving Lines: None Urinary Catheter: No Medications and DC Order Prescriptions: New aspirin 81 mg Tablet,Delayed Release (Dr/Ec) 81 mg PO BID 30 Days Qty: 60 RF: 0 acetaminophen [Tylenol Extra Strength] 500 mg Tablet 1,000 mg PO Q8H 14 Days Qty: 84 RF: 0 polyethylene glycol 3350 [Miralax] 17 gram powder in packet 17 g PO DAILY PRN (Reason: constipation) Qty: 5 RF: 0 oxycodone 5 mg Tablet 5 mg PO Q4H MDD 6 PRN (Reason: pain) Qty: 30 RF: 0 Continued Caltrate + D3 Plus Minerals 300 mg-800 unit -25 mg-0.5 mg tablet 1 tab PO BID Qty: 180 RF: 3 Centrum Silver 0.4-300-250 mg-mcg-mcg tablet 1 tab PO DAILY Qty: 90 RF: 0 PreserVision AREDS 14,320-226-200 [id number] capsule 1 cap PO BID Qty: 180 RF: 3 alendronate [Fosamax] 70 mg tablet 70 mg PO WK RF: 0 cholecalciferol (vitamin D3) 2,000 unit capsule 2,000 units PO QAM RF: 0 levothyroxine 50 mcg capsule 50 mcg PO QAM RF: 0 Systane (PF) 0.4-0.3 % Dropperette 1 drp OPHTHALMIC (EYE) UD PRN (Reason: Dry Eyes) RF: 0 Discontinued acetaminophen [Tylenol Arthritis Pain] 650 mg tablet extended release 1,300 mg PO UD PRN (Reason: Pain) RF: 0 omega-3 fatty acids 1,000 mg capsule 1,000 mg PO QAM RF: 0 Discharge Orders: Discharge Order (Routine); Ordered 01/29/22 Ordered By: Dewayne Robertson Admission Data Admit Date/Time: 01/27/22 12:58 Attending Provider: Glen Toro Admit Provider: Glen Toro Primary Care Provider: Rick Arce Other Providers: Brigido Ceja Other Interventions: Discharge Summary Assessment (RN) Last Done: 01/29/22 13:20
== END 2022-01-29 14:29 | DRG 470 ==
LOC: ASU 08:03 → 3E 12:58
DX: Z96.641 Presence of right artificial hip joint; R73.03 Prediabetes; Z01.812 Encounter for preprocedural laboratory examination; M81.0 Age-related osteoporosis without current pathological fracture; H35.30 Unspecified macular degeneration; Z79.899 Other long term (current) drug therapy; M17.11 Unilateral primary osteoarthritis, right knee; R73.01 Impaired fasting glucose; Z79.890 Hormone replacement therapy; Z20.822 Contact with and (suspected) exposure to COVID-19; E03.9 Hypothyroidism, unspecified